=== PATIENT | male | born 1970 | race Caucasian/White ===

== ENCOUNTER 2019-04-19 14:58 | Inpatient (IN) | payer OTHER ==
[2019-04-19] MEDS ORDERED: Ondansetron PF 4 MG/2 ML Vial ONE (15:27)
[2019-04-19] MEDS ORDERED: Morphine 4 MG/ML VIAL ONE (15:27)
[2019-04-19] MEDS ORDERED: Clindamycin/D5W 900 mg/50 ml Premix Bag ONE ×2 (15:27→15:36)
[2019-04-19] MEDS ORDERED: Piperacillin/Tazobactam 4.5 GM VIAL ONE ×2 (15:28→16:14)
[2019-04-19 15:52] LABS: #Lymphocytes 1.5 thou/uL (1.20-3.40); #Monocytes 1.9 thou/uL (0.11-0.59); #Neutrophils 12.9 thou/uL (1.40-6.50); %Basophils 0.1 % (0.0-1.0); %Eosinophils 0.1 % (0.0-10.0); %Lymphocytes 9.3 % (21.0-51.0); %Monocytes 11.8 % (0.0-10.0); %Neutrophils 78.8 % (42.0-75.0); Hemoglobin 14.8 g/dL (14.0-18.0); Mean Corpuscular HGB CONC 33.4 g/dL (32.0-36.0); Mean Corpuscular Hemoglobin 31.1 pg (27.0-31.0); Mean Corpuscular Volume 92.9 fL (78.0-98.0); Mean Platelet Volume 9.3 fL (7.4-10.4); Platelet Count 174 thou/uL (130-400); RBC Distribution Width 11.7 % (11.5-14.5); Red Blood Cell (RBC) Count 4.77 mill/uL (4.70-6.10); White Blood Cell (WBC) Count 16.3 thou/uL (4.8-10.8)
[2019-04-19] MEDS ORDERED: Acetaminophen/Codeine 30-300mg Tablet ONE (16:14)
[2019-04-19 16:15] LABS: ALT (SGPT) 15 U/L (8-55); AST (SGOT) 11 U/L (5-34); Alkaline Phosphatase 76 U/L (40-150); Anion Gap 14 mmol/L (10-20); BUN (Urea Nitrogen) 18 mg/dL (8.9-20.6); Bilirubin, Total 1.5 mg/dL (0.2-1.2); Calc. Creatinine Clearance 0 mL/min (70-130); Calcium 9.2 mg/dL (7.8-10.44); Carbon Dioxide 24 mmol/L (22-29); Chloride 102 mmol/L (98-107); Estimated GFR-MDRD 83; Globulin 3.4 g/dL (2.4-3.5); Glucose 118 mg/dL (70-105); Potassium 3.6 mmol/L (3.5-5.1); Protein, Total 7.4 g/dL (6.0-8.3); Sodium 136 mmol/L (136-145)
--- NOTE | 2019-04-19 18:37 | PDOC.FPRHP ---
Addendum entered and electronically signed by Issac Castillo MD 04/20/19 03:31: 10cc aspirated from joint Original Note: - History of Present Illness Chief Complaint: LUE Cellulitis History of Present Illness: The patient is a 49 y/o male who presents from a local alf with LUE cellulitis. The patient states that he ran into a door on 04/17/19 and that his left elbow has become increasingly swollen, erythematous, and edematous since. He complains of associated symptoms of fever, chills, nausea, LUE neuropathy characterized as a "burning", and decreased ROM. He received 2 doses of Minocycline and multiple doses of Aspirin at the [facility], which have not helped. He does admit to another inmate on his cell block having a similar infection from MRSA, but denies any chest pain, shortness of breath, vomiting, or diarrhea. ED Course: The patient received TYlenol #3 1 tab, Clindamycin 900 mg x2, Zosyn 4.5 g, and Vancomycin 1 g. 4 view X-Ray of the LUE was ordered and blood cultures were taken by ED staff. - Allergies/Adverse Reactions Allergies Allergy/AdvReac Type Severity Reaction Status Date / Time benztropine [From Cogentin] Allergy Verified 04/19/19 18:42 cephalexin [From Keflex] Allergy Rash Verified 04/19/19 18:42 meperidine [From Demerol] Allergy Verified 04/19/19 18:42 Penicillins Allergy Anaphylaxis Verified 04/19/19 18:42 - Home Medications Medication Instructions Recorded Confirmed Type Furosemide MDD 160 mg 04/19/19 History Lisinopril MDD 40 mg 04/19/19 History Metoprolol Tartrate 25 mg PO 04/20/19 History Omeprazole 40 mg PO DAILY 04/20/19 04/20/19 History Ranitidine HCl [Zantac] 300 mg PO 04/20/19 History - History PMHx: HTN, Asthma PSHx: Appendectomy FHx: None Social: Patient admits to a remote history of EtOH, Tobacco, and Drug Abuse (Non -IV), but denies x3 since his incarceration - Review of Systems General: reports: fever/chills, night sweats, fatigue Respiratory: denies: cough, shortness of breath Cardiovascular: denies: chest pain Gastrointestinal: reports: nausea. denies: vomiting, diarrhea, abdominal pain Skin: reports: lesions (LUE Extremity erythema, edema) Musculoskeletal: reports: pain, tenderness, stiffness, swelling, arthritis/ arthralgias Neurological: reports: numbness, weakness - Vital signs BP: [121/88] HR: [91] RR: [17] Tmax: [100.6] Pox: [100]% on [Room] Wt: [136 kg ] - Physical Exam Constitutional: NAD, awake, alert and oriented, well developed HEENT: normocephalic and atraumatic, PERRLA, EOMI, conjunctiva clear, no scleral icterus, grossly normal vision, grossly normal hearing, MMM, oropharynx clear Neck: supple, FROM, trachea midline, no LAD, no thyromegaly Chest: no-tender to palpation, no lesions Heart: RRR, normal S1/S2, no murmurs/rubs/gallops, pulses present (+2 at Radial Artery, bilaterally) Lungs: CTAB, no respiratory distress, good air movement, no rales/rhonchi, no wheezing, no retractions Abdomen: soft, non-tender -Musculoskeletal: The patient's LUE is grossy erythematous, edematous, and warm to the touch from the mid-humerus to the hand, without obvious sores or areas of drainage. ED staff marked borders on admission. ROM is decreased significantly to flexion and extension. 1 2 cm x 2 cm effusion was noted at the elbow, with no crepitus. Manager [employer] strength was equal bilaterally. -Neurological: Patient complains of LUE burning. Skin: capillary refill <2 seconds Psychiatric: normal mood and affect, intact recent and remote memory FMR H&P: Results - Labs Result Diagrams: 04/20/19 05:37 04/20/19 03:52 Lab results: WBC 16.3 thou/uL (4.8-10.8) H 04/19/19 15:31 Hgb 14.8 g/dL (14.0-18.0) 04/19/19 15:31 Hct 44.3 % (42.0-52.0) 04/19/19 15:31 MCV 92.9 fL (78.0-98.0) 04/19/19 15:31 Plt Count 174 thou/uL (130-400) 04/19/19 15:31 Neutrophils % 78.8 % (42.0-75.0) H 04/19/19 15:31 Sodium 136 mmol/L (136-145) 04/19/19 15:31 Potassium 3.6 mmol/L (3.5-5.1) 04/19/19 15:31 Chloride 102 mmol/L (98-107) 04/19/19 15:31 Carbon Dioxide 24 mmol/L (22-29) 04/19/19 15:31 BUN 18 mg/dL (8.9-20.6) 04/19/19 15:31 Creatinine 0.97 mg/dL (0.7-1.3) 04/19/19 15:31 Glucose 118 mg/dL (70-105) H 04/19/19 15:31 Lactic Acid 1.2 mmol/L (0.5-2.2) 04/19/19 15:31 Calcium 9.2 mg/dL (7.8-10.44) 04/19/19 15:31 Total Bilirubin 1.5 mg/dL (0.2-1.2) H 04/19/19 15:31 AST 11 U/L (5-34) 04/19/19 15:31 ALT 15 U/L (8-55) 04/19/19 15:31 Alkaline Phosphatase 76 U/L (40-150) 04/19/19 15:31 Serum Total Protein 7.4 g/dL (6.0-8.3) 04/19/19 15:31 Albumin 4.0 g/dL (3.5-5.0) 04/19/19 15:31 FMR H&P: A/P - Problem List (1) Cellulitis of elbow Current Visit: Yes Status: Acute Code(s): L03.119 - CELLULITIS OF UNSPECIFIED PART OF LIMB (2) SIRS (systemic inflammatory response syndrome) Current Visit: Yes Status: Acute Code(s): R65.10 - SIRS OF NON-INFECTIOUS ORIGIN W/O ACUTE ORGAN DYSFUNCTION - Plan 1. Cellulitis of Left Elbow, r/o Septic Arthritis vs. Infective Bursitis vs. Necrotising Fasciitis -Vancomycin Therapy with subsequent Trough Measurements -CBC revealed WBC of 16.3 -Blood Cultures Pending -ESR: 42 -Lactic Acid: 1.2 -CRP Pending -4 View LUE X-Ray Pending -LUE Soft Tissue US Pending, consider Joint Aspiration if US non-reassuring -Lrinec Score: 1 -Consider Surgical Consult if Necrotising Fasciitis is suspected 2. SIRS -Monitor Vitals for Hypotension or severe Fever -Trend ESR, Lactic Acid, CRP values -Initiated Fluid Resuscitation if Vitals Non-reassuring or AMS -Consider ID Consult FMR H&P: Upper Level - Plan Date/Time: 04/19/191832 HPI: This is a 49 yo gentleman being admitted for L arm cellulitis. States he bumped his L elbow on a door 2 days ago. States that the arm started to become erythematous shortly after the incident. He [place] and the redness as continued to expand despite treatment. He reports pain throughout the arm exacerbated by movement. He denies fevers at the alf. One of the inmates near him was recently treated for MRSA per his report but he denies have having had an MRSA infection. Patient is on Lasix, BB, and Lisinopril but denies ever being diagnosed with HF. States his leg swell sometimes which is why he is on the Lasix. PMH includes Asthma, HTN. Denies CHF. REVIEW OF SYSTEMS: Gen: no fever, chills, or sweats Neuro: no numbness/tingling, no weakness, denies headache Eyes: no visual changes Resp: no cough, no SOB, no wheeze Card: denies chest pain, no palpitations GI: no N/V/D, no abdominal pain : no dysuria, no hematuria MSK: see hpi Skin: see hpi PHYSICAL EXAMINATION: General: NAD, alert and oriented x3 HEENT: PERRLA, EOMI, normal sclera, oropharynx without erythema or exudate Neck: Supple. Full ROM. Heart/Cardiovascular System: RRR, Cap refill < 3 seconds, no rub, no murmur Lungs/Respiratory System: clear to auscultation bilaterally. No increased work of breathing. Room air. Abdomen/Gastro-Intestinal System: no abdominal tenderness, normal bowel sounds, no masses, no organomegaly Neuro: No gross deficits appreciated. CN 2-12 grossly intact Psychiatry: Awake, Alert and cooperative with exam Skin: Patient erythema extending from mid humerus to, hand, L hand is somewhat swollen, no crepitus, mild tenderness to palpation throughout Musculoskeletal: Patient has mild decreased ROM at L elbow, unable to fully flex or extend 30 to 150, mild pain with movement A/P: # Septic bursitis, Sepsis, Cellulitus - tapped L bursa, 20cc purulent fluid drained - CRP 27, ESR 42, WBC 16 - LRINEC 5, low risk for nec fasc, will follow patients course and have index of suspicion - consider septic joint, consult ortho in AM - Vancomycin, blood culture, GS, cytology, culture of aspirate # Possible CHF not in exacerbation - patient is on BB, CHANDA, Lasix - denies ever being diagnosed with CHF - trace lower extremity edema - consider Echo outpatient - Fluids: NS 150ml/hr Code status: full PPx: lovenox Dispo: >2 midnights Addendum - Attending - Attending Attestation Date/Time: 04/20/19 7198 I personally evaluated the patient and discussed the management with Dr. Castillo and team. I agree with the History, Examination, Assessment and Plan documented above with any addition or exceptions noted below.
--- NOTE | 2019-04-19 19:50 | RAD ---
LEFT HUMERUS TWO VIEWS: HISTORY: Swelling and pain. COMPARISON: None. FINDINGS: There is no acute fracture or malalignment. No erosions or periostitis. Mild soft tissue swelling of the dorsal aspect of the distal humerus and of the forearm. IMPRESSION: Dorsal soft tissue swelling, centered around the elbow, without fracture appreciated. POS: HOME
--- NOTE | 2019-04-19 19:53 | RAD ---
LEFT FOREARM TWO VIEWS: HISTORY: Pain and swelling. COMPARISON: None. FINDINGS: There is dorsal edema surrounding the elbow. Mild traction enthesophytes of the olecranon at the tri ceps insertion. No erosions or periostitis. IMPRESSION: 1. Soft tissue swelling, suggestive of cellulitis. 2. Subtle medial cortical irregularity of the distal ulna, likely chronic in nature. There are no f racture lines appreciated. POS: HOME
[2019-04-19] MEDS ORDERED: Ibuprofen 200 MG TAB ONE ×2 (20:13→20:18)
[2019-04-19] MEDS ORDERED: Calcium Carbonate 500 MG ChewTAB PO PRN (20:25)
[2019-04-19] MEDS ORDERED: Vancomycin HCl 1 GM in Premix Bag 1 BAG IVPB SCH (21:00)
[2019-04-19 21:45] LABS: Band 3 % (5-11); Hemoglobin 13.1 g/dL (14.0-18.0); Hypochromia SLIGHT = 6-15 cells (100X) (0-5/hpf); Lymphocytes 7 % (21-51); MDiff Complete? YES; Mean Corpuscular Volume 93.9 fL (78.0-98.0); Mean Platelet Volume 9.2 fL (7.4-10.4); Monocytes 3 % (0-10); Neutrophil 87 % (42-75); Platelet Count 152 thou/uL (130-400); Platelet Morphology Comment Appears Adequate; RBC Distribution Width 11.5 % (11.5-14.5); Red Blood Cell (RBC) Count 4.21 mill/uL (4.70-6.10); White Blood Cell (WBC) Count 13.6 thou/uL (4.8-10.8)
[2019-04-19 21:48] LABS: ALT (SGPT) 13 U/L (8-55); AST (SGOT) 9 U/L (5-34); Albumin 3.5 g/dL (3.5-5.0); Alkaline Phosphatase 64 U/L (40-150); Anion Gap 11 mmol/L (10-20); BUN (Urea Nitrogen) 17 mg/dL (8.9-20.6); Bilirubin, Total 1.4 mg/dL (0.2-1.2); Calc. Creatinine Clearance 0 mL/min (70-130); Calcium 8.4 mg/dL (7.8-10.44); Carbon Dioxide 24 mmol/L (22-29); Chloride 105 mmol/L (98-107); Estimated GFR-MDRD 85; Globulin 2.8 g/dL (2.4-3.5); Glucose 107 mg/dL (70-105); Potassium 3.6 mmol/L (3.5-5.1); Protein, Total 6.3 g/dL (6.0-8.3); Sodium 136 mmol/L (136-145)
[2019-04-19] MEDS ORDERED: Sodium Chloride 0.9% 1,000 ML IV SCH (22:00)
--- NOTE | 2019-04-19 22:09 | ULT ---
EXAM: US Soft Tissue Other PROVIDED CLINICAL HISTORY: Pain status post injury COMPARISON: None FINDINGS: Limited sonographic interrogation was performed of the left elbow in the region of clinical concern. There is a heterogeneous, circumscribed area of altered echogenicity in the region of clinical concern, measuring approximately 5 cm. This demonstrates fluid echogenicity as well as more complex a reas and mobile debris. IMPRESSION: At least 5 cm complex fluid collection in the region of clinical concern. Hematoma is possible given reported recent injury. Correlate with concerns for infection.
[2019-04-19] MEDS: Sodium Chloride 0.9% 1,000 ML IV SCH (22:25)
[2019-04-19] MEDS ORDERED: Lidocaine 1% (PF) 30 ML VIAL ONE (22:39)
--- NOTE | 2019-04-20 00:27 | PDOC.EVN ---
Addendum entered and electronically signed by Issac Castillo MD 04/20/19 03:32: Original Note: Event Note - Event Note Event Note: PRE-OP DIAGNOSIS: Cellulitis L elbow POST-OP DIAGNOSIS: Same PROCEDURE: joint aspiration Performing Physician: Tabatha Landers, PGY-1 Supervising Physician (if applicable): Dr. Larry Castillo, PGY-3, Dr. Kenroy Hyde ( Attending) Local anesthesia: - 1% Lidocaine 2 mL Procedure: The area was prepped in the usual sterile manner w/ iodine. Lidocaine needle was inserted into the affected area of the L elbow, and lidocaine injected. Large bore needle then inserted while aspirating fluid from the bursa. Fluid appeared purulent and yellow-brown in color. ~5-10 mL collected and labeled w/ the patient's label. There were no complications during this procedure. Followup: The patient tolerated the procedure well without complications. Standard post-procedure care was explained. Tabatha Landers MD, PGY-1 Addendum - Attending - Attending Attestation Date/Time: 04/20/19 1041 I was present for the procedure.
[2019-04-20 01:04] LABS: BF Color Pink; Body Fluid Source Synovial Fluid; Clarity Cloudy/Turbid (Clear); Tube # EDTA
[2019-04-20 01:05] LABS: WBC Background Count 0.04; WBC/NonHematic-Auto 334000 /cumm
[2019-04-20 01:06] LABS: RBC Count-Automated 704000 /cumm
[2019-04-20 01:24] VITALS: BMI 40.6
[2019-04-20 02:10] LABS: BF Segmented Neutrophils 99 %; Lymphocytes 1 %
[2019-04-20 04:30] LABS: Anion Gap 12 mmol/L (10-20); BUN (Urea Nitrogen) 15 mg/dL (8.9-20.6); Calc. Creatinine Clearance 166 mL/min (70-130); Calcium 8.8 mg/dL (7.8-10.44); Carbon Dioxide 23 mmol/L (22-29); Chloride 107 mmol/L (98-107); Estimated GFR-MDRD 75; Glucose 108 mg/dL (70-105); Sodium 138 mmol/L (136-145)
[2019-04-20] MEDS: Acetaminophen 325 MG TAB PO PRN ×2 (04:30→21:43)
[2019-04-20 04:34] LABS: Vancomycin, Trough 7.2 ug/mL
[2019-04-20] MEDS ORDERED: Ibuprofen 600 MG TAB PO ONE (05:52)
--- NOTE | 2019-04-20 05:58 | PDOC.EVN ---
Event Note - Event Note Event Note: Brief Encounter Note: Call from DAVID Kwok: 102.5 F fever ~0430 this AM. Gave Tylenol 650mg PO. Fever recheck at 103.1 F. Went to see patient. Reports nausea and feeling hot. Appeared sweaty and tired. Erythema of left arm slightly spread past drawn margins at 0300. Ordered ibuprofen 600mg to be given now. Tabatha Landers MD PGY-1
[2019-04-20] MEDS ORDERED: Vancomycin HCl 2 GM in Sodium Chloride 0.9% 250 ML 300 ML IVPB SCH (06:00)
--- NOTE | 2019-04-20 06:01 | PDOC.FM ---
- Subjective Subjective: Patient is seen sitting up in his bed chatting with staff this morning. At 430 AM the night team was paged that the patient had a temp of 102.5F and he was given 650 mg Tylenol. Repeat temp at 530AM was 103.1F. The patient currently complains of nausea, feeling sweaty, and fatigue. He says that over the past few days he has had alternating periods of feeling sweaty vs feeling chills. Last night his left elbow was aspirated near the joint with 20cc of purulent fluid removed and sent for culture. So far this aspirate has shown gram- positive cocci. The patient's left arm was originally marked at the erythema line in the ED, then again at 300AM this morning. Upon exam today at 6:30AM, the erythema has continued to spread up his arm past mid-humerus and down his arm into his left hand and fingers. Patient complains of increased pain in his arm in addition to the increased swelling. Patient additionally noticed early this morning that he has an area of increased firmness on the inner part of his right thigh just above the knee. He states this area is similar to how his left elbow originally started as. ROS: Positive for fever, chills, fatigue, nausea, chest tightness. Denies vomiting, chest pain, shortness of breath, wheezing, diarrhea, constipation. - Objective MAR Reviewed: Yes Vital Signs & Weight: Vital Signs (12 hours) Temp Pulse Resp BP BP BP Pulse Ox 04/20/19 05:41 103.1 F H 04/20/19 04:00 102.5 F H 92 20 126/63 93 L 04/20/19 00:00 99.5 F 90 20 121/76 04/19/19 21:10 99.2 F 81 18 168/70 H 96 Weight Weight 136 kg Result Diagrams: 04/20/19 05:37 04/20/19 03:52 Additional Labs: Laboratory Tests 04/20/19 00:05 Fluid Source Synovial Fluid Fluid Tube Number EDTA Fluid Color [place] Fluid Clarity Cloudy/Turbid H Fluid WBC 516676 Fluid RBC [id number] Fluid Seg Neutrophil % 99 Fluid Lymphocytes % 1 Laboratory Tests 04/19/19 04/20/19 15:31 03:52 C-Reactive Protein 27.56 H 24.48 H Aspirate positive for gram positive cocci. Blood cultures negative at 12 hours. Radiology Reviewed by me: Yes Radiology: LUE XR: concerning for cellulitis LUE U/S: 5 cm complex fluid collection Phys Exam - Physical Examination Mild distress. Appears sweaty. HEENT: moist MMs, sclera anicteric Neck: no JVD, supple, full ROM Respiratory: no wheezing, no rales, no rhonchi, clear to auscultation bilateral Cardiovascular: RRR, no significant murmur Gastrointestinal: soft, non-tender, positive bowel sounds Musculoskeletal: pulses present, edema present (left UE from mid humerus down to left hand and fingers) Neurological: normal sensation, moves all 4 limbs Psychiatric: normal affect, A&O x 3 Deviation from normal: Erythema and swelling present past original ED&3:00 margins. -: Area of increased firmness on inner part of left arm just above elbow. Dx/Plan (1) Hypertension Code(s): I10 - ESSENTIAL (PRIMARY) HYPERTENSION Status: Chronic (2) History of asthma Code(s): Z87.09 - PERSONAL HISTORY OF OTHER DISEASES OF THE RESPIRATORY SYSTEM Status: Chronic (3) Hx of congestive heart failure Code(s): Z86.79 - PERSONAL HISTORY OF OTHER DISEASES OF THE CIRCULATORY SYSTEM Status: Chronic (4) Cellulitis of elbow Code(s): L03.119 - CELLULITIS OF UNSPECIFIED PART OF LIMB Status: Acute (5) SIRS (systemic inflammatory response syndrome) Code(s): R65.10 - SIRS OF NON-INFECTIOUS ORIGIN W/O ACUTE ORGAN DYSFUNCTION Status: Acute (6) GERD (gastroesophageal reflux disease) Code(s): K21.9 - GASTRO-ESOPHAGEAL REFLUX DISEASE WITHOUT ESOPHAGITIS Status: Acute - Plan Plan: 1. Cellulitis of Left Elbow, r/o Septic Arthritis vs. Infective Bursitis vs. Necrotising Fasciitis -Vancomycin Therapy with subsequent Trough Measurements--Pharmacy to dose -added Levaquin 750mg q24 hrs -WBC trending down 16.3 -> 13.6 -Blood Cultures negative at 12 hours -ESR: 42 -Lactic Acid: 1.2 -CRP 27.5 -> 24.5 -4 View LUE X-Ray-shows cellulitis -LUE Soft Tissue US--shows 5cm complex fluid collection -Joint Aspiration-about 20 cc purulent fluid collect, await culture results of aspirate, initial report shows 334,000 WBC, 704,000 RBC with gram stain showing gram positive cocci -Lrinec Score: 5 -Ortho Surgery Consult--suspected septic joint vs. necrotizing fasciitis 2. SIRS -Monitor Vitals for Hypotension or severe Fever--Tylenol and Ibuprofen ordered prn -Trend ESR, Lactic Acid, CRP values -Initiated Fluid Resuscitation if Vitals Non-reassuring or AMS -Consider ID Consult 3. Hypertension -Controlled on home meds Lisinopril and Metoprolol 4. Hx of CHF -Controlled on home med Lasix 5. Hx of Asthma -restarted home med of Dulera inhaler & Zyrtec -Albuterol inhaler ordered prn 6. GERD -restarted Carafate home med
[2019-04-20] MEDS: Sodium Chloride 0.9% 1,000 ML IV SCH ×3 (06:18→17:26)
[2019-04-20 06:29] LABS: Band 4 % (5-11); Hemoglobin 13.4 g/dL (14.0-18.0); Lymphocytes 5 % (21-51); MDiff Complete? YES; Mean Platelet Volume 9.7 fL (7.4-10.4); Monocytes 5 % (0-10); Neutrophil 86 % (42-75); Platelet Count 148 thou/uL (130-400); Platelet Morphology Comment Appears Adequate; RBC Distribution Width 11.6 % (11.5-14.5); RBC Morphology Normal; Red Blood Cell (RBC) Count 4.31 mill/uL (4.70-6.10); White Blood Cell (WBC) Count 11.4 thou/uL (4.8-10.8)
[2019-04-20] MEDS ORDERED: PROVENTIL INHALER 6.7 G (200 INHALATIONS) INH PRN (08:30)
[2019-04-20] MEDS ORDERED: Cetirizine HCl 10 MG TAB PO SCH (09:00)
[2019-04-20] MEDS: Enoxaparin Sodium 40 MG/0.4 ML SYRINGE SC SCH (09:21)
[2019-04-20] MEDS: Famotidine 20 MG TAB PO SCH ×2 (10:38→20:16)
[2019-04-20] MEDS: Loratadine 10 MG TAB PO SCH ×2 (10:38→14:03)
[2019-04-20] MEDS: Lisinopril 20 MG TAB PO SCH ×2 (10:38→14:02)
[2019-04-20] MEDS: Metoprolol Tartrate 25 MG TAB PO SCH ×2 (10:38→20:16)
[2019-04-20] MEDS: Sucralfate 1 GM TAB PO SCH ×4 (10:54→20:16)
--- NOTE | 2019-04-20 13:11 | PRG ---
DATE OF SERVICE: 04/20/2019 Mr. Kong is a 49-year-old white male patient prisoner, who was admitted with a cellulitis of his left arm very near the joint and bursa. I and D was performed last night. He is currently on broad-spectrum antibiotics. I would suggest that we add a skyhook to get the arm elevated. We will also ask Ortho for an opinion given the proximity of this infection to his joint. Job ID: [id number]
[2019-04-20 13:23] LABS: Hemoglobin A1c 5.3 % (4.0-6.0)
[2019-04-20 13:57] LABS: Syphilis Antibody Nonreactive (Nonreactive); Syphilis Antibody Index 0.06 S/CO (<1.00 Non-Reactive)
[2019-04-20] MEDS ORDERED: Clopidogrel Bisulfate 75 MG TAB ONE (13:57)
[2019-04-20 13:58] LABS: HIV (1/2) Antibody/Antigen Non-Reactive (NonReactive); HIV 1/2 INDEX 0.19 S/CO (<1.00); Hep C IgG Ab Non-Reactive (NonReactive)
[2019-04-20] MEDS: Ibuprofen 600 MG TAB PO PRN ×2 (14:02→20:16)
--- NOTE | 2019-04-20 15:55 | CON ---
DATE OF CONSULTATION: HISTORY OF PRESENT ILLNESS: Mr. Kong is a 49-year-old male, who presented to the hospital yesterday with cellulitis of the left upper extremity. He was found to have septic olecranon bursitis as well. The olecranon bursa was aspirated and approximately 20 mL of purulent material was identified. This was sent for cultures, gram-positive cocci had been identified on Gram stain. He is on intravenous antibiotics. The patient is slowly improving. He did have an elevated white blood cell count as well as fevers. His white blood cell count is responding and improving. He has a complex medical history after being interviewed. He reports having loss of balance and weakness in the lower extremities, causing him to be in a wheelchair. He is convinced he has parasites. He has had multiple ear infections. He has been receiving workup in [place], and is hoping to get an MRI of his brain. Upon initial presentation here, his fever was 103.1 and is down to 98.9 currently. PAST MEDICAL HISTORY: Positive for; 1. Neurologic symptoms as per HPI. 2. Hypertension. 3. Asthma. PAST SURGICAL HISTORY: Appendectomy. FAMILY MEDICAL HISTORY: Noncontributory. IMAGING STUDIES: X-rays of the humerus and forearm are negative for bony findings. There is soft tissue swelling. LABORATORY STUDIES: White blood cell count yesterday was 16.3, today it is down to 11.4. PHYSICAL EXAMINATION: VITAL SIGNS: Temperature is 98.9, pulse is 76, respiratory rate is 18, and blood pressure is 119/73. GENERAL: He is alert, lying supine, in no apparent distress. RESPIRATORY: Breathing comfortably. ABDOMEN: Soft, nontender, and nondistended. MUSCULOSKELETAL: The patient's left upper extremity has erythema and edema. This extends from the mid humerus to the wrist level. He has edema of the hand as well. He is able to flex and extend the hand and fingers. He can flex and extend the elbow without significant discomfort. He has posterior olecranon bursitis, swelling, and tenderness. There is increased warmth. No open wounds. IMPRESSION: Left arm cellulitis with olecranon bursitis, septic. PLAN: At this point, the patient needs to continue his intravenous antibiotics. He does seem to be responding to antibiotics given that his fever has normalized and his white blood cell count is decreasing. I think he likely will need operative intervention. I will put him n.p.o. at midnight tonight. Hopefully, his cellulitis is improving and we can proceed with irrigation and debridement of the posterior olecranon bursa. This will likely be done tomorrow afternoon. If he has a significant improvement as possible, he would not need surgical intervention, but I think this is unlikely. I will leave the remainder of his workup including his suspicion of parasites up to the internal medicine service. He has multiple labs ordered including HIV, syphilis, hepatitis serologies, and others. N.p.o. at midnight. I will continue to follow closely. Job ID: [id number]
--- NOTE | 2019-04-20 16:55 | PQF ---
CLINICAL DOCUMENTATION IMPROVEMENT CLARIFICATION FORM: ICD-10 Updated PLEASE DO AN ADDENDUM TO THE PROGRESS NOTE WITH ANY DOCUMENTATION UPDATES OR ADDITIONS AND CARRY THROUGH TO DC SUMMARY. THANK YOU. DATE: 04/20/19 ATTN: DR. ARELLANO Please exercise your independent, professional judgment in responding to the clarification form. Clinical indicators are provided on the bottom of this form for your review Please check appropriate box(s) to clarify if the following diagnosis has been ruled in or ruled out: "SEPSIS" [ X] Ruled in diagnosis [ X] Continue to treat [ ] Resolved [ ] Ruled out diagnosis [ ] Cannot rule out diagnosis [ ] Other diagnosis [ ] Unable to determine In addition, please specify: Present on Admission (POA): [ X] Yes [ ] No [ ] Unable to determine For continuity of documentation, please document condition throughout progress notes and discharge summary. Thank You. CLINICAL INDICATORS - SIGNS / SYMPTOMS / LABS H&P: "SEPSIS" CONSULTATION NOTE (CLAUDE): "LEFT ARM CELLULITIS WITH OLECRANON BURSITIS, SEPTIC" PULSE 107 RR 25 WBC 16.3 CRP 27.56 RISKS: CELLULITIS TREATMENT: IV VANCOMYCIN (ER-PRESENT) IV ZOSYN (ER) IV CLINDAMYCIN (ER) IV LEVAQUIN (04/20) IV FLUIDS (ER-PRESENT) BLOOD CULTURES CULTURE OF SYNOVIAL FLUID (This form is maintained as a part of the permanent medical record) 2014 [employer]. All Rights Reserved [email or web address] Office: [phone] [facility]ITAL[facility]ai
[2019-04-20] MEDS: Mometasone/Formoterol 120 PUFF INHALER INH SCH (18:58)
[2019-04-21] MEDS: Ibuprofen 600 MG TAB PO PRN ×2 (02:18→21:04)
[2019-04-21] MEDS: Acetaminophen 325 MG TAB PO PRN (04:12)
[2019-04-21 04:57] LABS: #Eosinphils 0.1 thou/uL (0.0-0.7); #Lymphocytes 1.3 thou/uL (1.20-3.40); #Monocytes 0.9 thou/uL (0.11-0.59); %Basophils 0.2 % (0.0-1.0); %Eosinophils 1.1 % (0.0-10.0); %Monocytes 10.2 % (0.0-10.0); %Neutrophils 72.5 % (42.0-75.0); Hemoglobin 12.6 g/dL (14.0-18.0); Mean Corpuscular HGB CONC 32.6 g/dL (32.0-36.0); Mean Corpuscular Hemoglobin 31.2 pg (27.0-31.0); Mean Corpuscular Volume 95.7 fL (78.0-98.0); Mean Platelet Volume 9.6 fL (7.4-10.4); Platelet Count 151 thou/uL (130-400); RBC Distribution Width 11.5 % (11.5-14.5); Red Blood Cell (RBC) Count 4.05 mill/uL (4.70-6.10); White Blood Cell (WBC) Count 8.3 thou/uL (4.8-10.8)
[2019-04-21] MEDS: Sodium Chloride 0.9% 1,000 ML IV SCH ×4 (05:20→20:43)
[2019-04-21 05:24] LABS: Anion Gap 12 mmol/L (10-20); BUN (Urea Nitrogen) 13 mg/dL (8.9-20.6); Calc. Creatinine Clearance 209 mL/min (70-130); Calcium 8.7 mg/dL (7.8-10.44); Carbon Dioxide 20 mmol/L (22-29); Chloride 110 mmol/L (98-107); Estimated GFR-MDRD Greater than 90; Glucose 93 mg/dL (70-105); Potassium 3.7 mmol/L (3.5-5.1); Sodium 138 mmol/L (136-145); Vancomycin, Trough 12.1 ug/mL
--- NOTE | 2019-04-21 05:33 | PDOC.FM ---
- Subjective Subjective: Patient is seen sitting up in his bed chatting with staff this morning. He reports that he did not have any fever/chills overnight. He complains of increased pain in his left arm and is requesting stronger pain meds. He also had some discomfort from his arm handing in the skyhook that was placed yesterday evening to promote drainage from the left arm. When his arm was in the skyhook he rated his pain 10/10. The skyhook was removed at 2140 last night and the patient was placed back into metal cuffs. He continues to state that he believes that he is infected with parasites in his left arm and right leg but states he "feels they are moving around less since starting the antibiotics". He is scheduled this morning for ortho surgery with Dr. Hoagn who plans to irrigate and debride the left posterior olecranon bursa. Patient had a Hibiclens bath around 6:00AM this morning in anticipation for surgery. The patient's left arm was originally marked at the erythema line in the ED, then again at 300AM on 04/20. Upon exam today at 6:30AM, the erythema and swelling has not spread any further and is still located on his left arm past mid-humerus and is present down his arm into his left hand and fingers. Patient additionally complains this morning that he feels constipated. His last BM was on April 17. ROS: Denies fever, chills, fatigue, nausea, vomiting, chest tightness, chest pain, shortness of breath, wheezing, diarrhea. Positive for constipation. - Objective Vital Signs & Weight: Vital Signs (12 hours) Temp Pulse Resp BP Pulse Ox 04/21/19 04:00 99.1 F 71 20 117/63 94 L 04/21/19 00:00 99.2 F 74 20 105/57 L 94 L 04/20/19 20:00 99.3 F 79 20 154/86 H 93 L 04/20/19 19:41 93 L 04/20/19 18:58 80 12 96 Weight Weight 136 kg I&O: 04/19/19 04/20/19 04/21/19 06:59 06:59 06:59 Intake Total 1760 Output Total 1000 Balance 760 Result Diagrams: 04/21/19 04:37 04/21/19 04:37 Phys Exam - Physical Examination Constitutional: NAD HEENT: moist MMs, sclera anicteric Neck: no JVD, supple, full ROM Respiratory: no wheezing, clear to auscultation bilateral Cardiovascular: RRR, no significant murmur Gastrointestinal: soft, non-tender, positive bowel sounds Musculoskeletal: pulses present, edema present (significant edema present in left UE from mid humerus down into fingers) Neurological: normal sensation, moves all 4 limbs Psychiatric: normal affect, A&O x 3 Deviation from normal: Left UE is red, swollen with skin tightening. No visible drainage. Dx/Plan (1) Hypertension Code(s): I10 - ESSENTIAL (PRIMARY) HYPERTENSION Status: Chronic (2) History of asthma Code(s): Z87.09 - PERSONAL HISTORY OF OTHER DISEASES OF THE RESPIRATORY SYSTEM Status: Chronic (3) Hx of congestive heart failure Code(s): Z86.79 - PERSONAL HISTORY OF OTHER DISEASES OF THE CIRCULATORY SYSTEM Status: Chronic (4) Cellulitis of elbow Code(s): L03.119 - CELLULITIS OF UNSPECIFIED PART OF LIMB Status: Acute (5) SIRS (systemic inflammatory response syndrome) Code(s): R65.10 - SIRS OF NON-INFECTIOUS ORIGIN W/O ACUTE ORGAN DYSFUNCTION Status: Acute (6) GERD (gastroesophageal reflux disease) Code(s): K21.9 - GASTRO-ESOPHAGEAL REFLUX DISEASE WITHOUT ESOPHAGITIS Status: Chronic (7) Constipation Code(s): K59.00 - CONSTIPATION, UNSPECIFIED Status: Acute - Plan Plan: 49 yo male admitted for Cellulitis with Septic Bursa of Left Elbow 1. Cellulitis of Left Elbow, r/o Septic Arthritis vs. Infective Bursitis vs. Necrotising Fasciitis -Vancomycin Therapy with subsequent Trough Measurements--Pharmacy to dose -Levaquin 750mg q24 hrs -WBC trending down 16.3 -> 13.6 -> 8.3 -Blood Cultures negative at 12 hours -ESR: 42 -Lactic Acid: 1.2 -CRP 27.5 -> 24.5 -4 View LUE X-Ray-shows cellulitis -LUE Soft Tissue US--shows 5cm complex fluid collection -Joint Aspiration-about 20 cc purulent fluid collect, await culture results of aspirate, initial report shows 334,000 WBC, 704,000 RBC with gram stain showing gram positive cocci -Lrinec Score: 5 -Ortho Surgery Consultplan for irrigation and debridement this AM, appreciate recs to follow -will add Morphine 2 mg for additional pain management 2. SIRS -Sepsis/SIRS criteria met upon admission include: Temp >100.4F (pt had temp of 103.1F) , HR >90 (pt had HR 92), RR >20 (pt had RR 20), WBC >12,000 (pt had WBC 16,300) with suspected source of infection (left elbow) -Monitor Vitals for Hypotension or severe Fever--Tylenol and Ibuprofen ordered prn -Trend ESR, Lactic Acid, CRP values -Initiated Fluid Resuscitation if Vitals Non-reassuring or AMS -Consider ID Consult if clinical condition deteriorates 3. Hypertension -Controlled on home meds Lisinopril and Metoprolol 4. Hx of CHF -Controlled on home med Lasix 5. Hx of Asthma -restarted home med of Dulera inhaler & Zyrtec -Albuterol inhaler ordered prn 6. GERD -restarted Carafate home med 7. Constipation -last BM on 04/17 -Miralax ordered prn Diet: Regular, placed on NPO at midnight for 04/21 until after surgery VTE: SCDs, Lovenox Code status: Full code Dispo: Patient stable, LOS expected <48 hrs
[2019-04-21] MEDS: Mometasone/Formoterol 120 PUFF INHALER INH SCH ×2 (07:26→18:43)
[2019-04-21] MEDS: Sucralfate 1 GM TAB PO SCH ×4 (08:07→20:40)
[2019-04-21] MEDS: Lisinopril 20 MG TAB PO SCH (08:07)
[2019-04-21] MEDS: Famotidine 20 MG TAB PO SCH ×2 (08:07→20:40)
[2019-04-21] MEDS: Loratadine 10 MG TAB PO SCH (08:07)
[2019-04-21] MEDS: Metoprolol Tartrate 25 MG TAB PO SCH ×2 (08:07→20:41)
[2019-04-21] MEDS: Enoxaparin Sodium 40 MG/0.4 ML SYRINGE SC SCH (08:08)
[2019-04-21] MEDS ORDERED: Polyethylene Glycol 3350 17 GM Packet PO PRN (09:09)
[2019-04-21] MEDS ORDERED: Polyethylene Glycol 3350 17 GM Packet PO SCH (09:15)
[2019-04-21] MEDS ORDERED: Lidocaine 1% PF 5 ML VIAL ONE (11:26)
[2019-04-21] MEDS ORDERED: Succinylcholine Chloride 20 MG/ML 10 ml SYRINGE FS ONE (11:26)
[2019-04-21] MEDS ORDERED: Dexamethasone 20 MG/5 ML VIAL ONE (11:26)
[2019-04-21] MEDS ORDERED: Ondansetron PF 4 MG/2 ML Vial ONE (11:26)
[2019-04-21] MEDS ORDERED: PROPOFOL 200 MG/20 ML VIAL ONE (11:26)
[2019-04-21] MEDS ORDERED: Morphine 2 MG/ML SYRINGE SLOW IVP PRN (12:15)
[2019-04-21] MEDS ORDERED: Morphine 2 MG/ML SYRINGE SLOW IVP SCH (12:15)
--- NOTE | 2019-04-21 12:30 | PRG ---
DATE OF SERVICE: 04/21/2019 Mr. Kong was seen in consultation by the orthopedic surgeon and will be taken for surgery later today for further debridement of his olecranon bursitis and abscess. He still has a great deal of swelling in his left arm, although this is improved from admission. He is growing Staph aureus from the olecranon bursal aspirate and is on appropriate antibiotic coverage. We will continue to follow with the orthopedist and appreciate his input. Job ID: [id number]
[2019-04-21] MEDS: Vancomycin HCl 1.75 GM in Sodium Chloride 0.9% 500 ML IVPB SCH ×2 (15:11→22:24)
[2019-04-21] MEDS ORDERED: HYDROcodone/Acetaminophen 5/325 mg Tablet ONE (15:30)
[2019-04-21] MEDS ORDERED: Fentanyl 100 MCG/2 ML VIAL ONE ×3 (16:09→17:14)
[2019-04-21] MEDS ORDERED: Lidocaine 2% Jelly 5 ML TUBE ONE (16:09)
[2019-04-21] MEDS ORDERED: Midazolam HCl 2 mg/2 ml Vial ONE (16:09)
[2019-04-21] MEDS ORDERED: Promethazine HCl 25 MG/ML VIAL IM PRN (17:45)
[2019-04-21] MEDS ORDERED: Promethazine HCl 25 MG/ML VIAL SLOW IVP PRN (17:45)
[2019-04-21] MEDS ORDERED: Ondansetron HCl/PF 4 MG/2 ML Vial IVP PRN (17:45)
--- NOTE | 2019-04-21 18:08 | OP ---
DATE OF PROCEDURE: 04/21/2019 OPERATION: Irrigation and debridement of left elbow with septic olecranon bursa. PREOPERATIVE DIAGNOSIS: Left septic elbow olecranon bursa. POSTOPERATIVE DIAGNOSIS: Left septic elbow olecranon bursa. COMPLICATIONS: None. ESTIMATED BLOOD LOSS: 100 mL. IMPLANTS: None. INDICATIONS: Mr. Kong is a 49-year-old male who has developed erythema and swelling around his left elbow as well as cellulitis of the left upper extremity. This began with a minor injury, striking his elbow against a door frame. Aspirate of the bursa has shown gram-positive cocci. He failed to improve. He was indicated for irrigation and debridement of the septic bursa to hopefully help eradicate infection. DESCRIPTION OF OPERATION: Mr. Kong was identified in the preoperative holding area. His correct extremity was marked. He was carried to the operating room. He was positioned supine. General anesthesia was induced. A multidisciplinary time-out was performed. The left upper extremity was prepped and draped in sterile fashion. At this point, we began the procedure with a posterior incision over the elbow. We dissected down through the subcutaneous tissues into the bursal space. We encountered purulent material. This was cultured. We debrided the deep tissues with a rongeur including subcutaneous tissues and fascia. We worked medially and laterally. At this point, again, we thoroughly irrigated with copious lavage. We then debrided with a curette. Next, we performed a final irrigation. We then trimmed the skin edges. We then loosely closed with a 3-0 nylon suture. There was some packing left in place, which was iodoform gauze as well. Job ID: [id number]
[2019-04-22] MEDS: Acetaminophen 325 MG TAB PO PRN ×2 (01:33→16:02)
[2019-04-22] MEDS: Sodium Chloride 0.9% 1,000 ML IV SCH ×2 (05:17→08:17)
[2019-04-22 05:23] LABS: #Eosinphils 0.1 thou/uL (0.0-0.7); #Lymphocytes 1.2 thou/uL (1.20-3.40); #Monocytes 0.8 thou/uL (0.11-0.59); #Neutrophils 6.2 thou/uL (1.40-6.50); %Basophils 0.5 % (0.0-1.0); %Eosinophils 0.8 % (0.0-10.0); %Lymphocytes 14.7 % (21.0-51.0); %Monocytes 9.9 % (0.0-10.0); %Neutrophils 74.1 % (42.0-75.0); Hemoglobin 11.5 g/dL (14.0-18.0); Mean Corpuscular HGB CONC 32.7 g/dL (32.0-36.0); Mean Corpuscular Hemoglobin 31.3 pg (27.0-31.0); Mean Corpuscular Volume 95.5 fL (78.0-98.0); Mean Platelet Volume 9.6 fL (7.4-10.4); Platelet Count 162 thou/uL (130-400); RBC Distribution Width 11.5 % (11.5-14.5); Red Blood Cell (RBC) Count 3.67 mill/uL (4.70-6.10); White Blood Cell (WBC) Count 8.4 thou/uL (4.8-10.8)
--- NOTE | 2019-04-22 05:37 | PDOC.FM ---
- Subjective Subjective: Patient is seen sitting up in his bed chatting with staff this morning. Yesterday around 1:00PM, Dr. Hoang performed I&D of the patients left olecranon bursa and cultures were sent. Patient believes the surgery went well. His pain and swelling has improved overnight but is still significantly present near the left elbow up to mid humerus. He reports that he did not have any fever/chills overnight. He additionally complains of some chest tightness and a cough this morning. He requested a treatment of his Dulera inhaler from the nurse during my exam. Patient also states he is amenable to being placed back in the skyhook for the morning and says he will try to tolerate it until at least lunchtime today. ROS: Denies fever, chills, fatigue, nausea, vomiting, chest pain, shortness of breath, wheezing, diarrhea, constipation. Positive for chest tightness and cough as above. - Objective Vital Signs & Weight: Vital Signs (12 hours) Temp Pulse Resp BP BP Pulse Ox 04/22/19 01:40 98.7 F 04/21/19 22:23 97.7 F 82 18 136/73 95 04/21/19 18:43 74 16 94 L 04/21/19 18:15 98.9 F 79 18 156/79 H 94 L Weight Weight 136 kg I&O: 04/20/19 04/21/19 04/22/19 06:59 06:59 06:59 Intake Total 3928 Output Total 1900 750 Balance 8 -750 Result Diagrams: 04/22/19 04:59 04/22/19 04:59 Phys Exam - Physical Examination Constitutional: NAD HEENT: moist MMs, sclera anicteric Neck: no JVD, supple, full ROM Respiratory: no wheezing, clear to auscultation bilateral Cardiovascular: RRR, no significant murmur Gastrointestinal: soft, non-tender, positive bowel sounds Musculoskeletal: pulses present Swelling of left arm from mid humerus down into hand Neurological: normal sensation, moves all 4 limbs Psychiatric: normal affect, A&O x 3 Skin: no rash, normal turgor Deviation from normal: Skin is red and warm near left elbow. Dressing in place over surgery site. Dx/Plan (1) Hypertension Code(s): I10 - ESSENTIAL (PRIMARY) HYPERTENSION Status: Chronic (2) History of asthma Code(s): Z87.09 - PERSONAL HISTORY OF OTHER DISEASES OF THE RESPIRATORY SYSTEM Status: Chronic (3) Hx of congestive heart failure Code(s): Z86.79 - PERSONAL HISTORY OF OTHER DISEASES OF THE CIRCULATORY SYSTEM Status: Chronic (4) Cellulitis of elbow Code(s): L03.119 - CELLULITIS OF UNSPECIFIED PART OF LIMB Status: Acute (5) SIRS (systemic inflammatory response syndrome) Code(s): R65.10 - SIRS OF NON-INFECTIOUS ORIGIN W/O ACUTE ORGAN DYSFUNCTION Status: Acute (6) GERD (gastroesophageal reflux disease) Code(s): K21.9 - GASTRO-ESOPHAGEAL REFLUX DISEASE WITHOUT ESOPHAGITIS Status: Chronic (7) Constipation Code(s): K59.00 - CONSTIPATION, UNSPECIFIED Status: Acute - Plan Plan: 49 yo male admitted for Cellulitis with Septic Bursa of Left Elbow 1. Cellulitis of Left Elbow, Septic Arthritis, Infective Olecranon Bursitis -Vancomycin Therapy with subsequent Trough Measurements--Pharmacy to dose -Levaquin 750mg q24 hrsdiscontinued on 04/21 due to culture results -WBC trending down 16.3 -> 13.6 -> 8.3 -> 8.4 -Blood Cultures negative at 48 hours -ESR: 42 -Lactic Acid: 1.2 -CRP 27.5 -> 24.5 -4 View LUE X-Ray-shows cellulitis -LUE Soft Tissue US--shows 5cm complex fluid collection -Joint Aspiration-about 20 cc purulent fluid collect, await culture results of aspirate, initial report shows 334,000 WBC, 704,000 RBC with gram stain showing Staph Aureus -Lrinec Score: 5 -Ortho Surgery Consultperformed irrigation and debridement on 04/21, appreciate recs to follow -Added Morphine 2 mg q4hr prn for pain control -Preliminary culture results from specimen taken in surgery shows gram positive cocci in pairs in clusters, anaerobe culture still pending -Will place back in [facility] this morning 2. SIRS -Sepsis/SIRS criteria met upon admission include: Temp >100.4F (pt had temp of 103.1F) , HR >90 (pt had HR 92), RR >20 (pt had RR 20), WBC >12,000 (pt had WBC 16,300) with suspected source of infection (left elbow)---patient has not had fever for past 24 hours, WBC count is trending down -Monitor Vitals for Hypotension or severe Fever--Tylenol and Ibuprofen ordered prn -Trend ESR, Lactic Acid, CRP values -Initiated Fluid Resuscitation if Vitals Non-reassuring or AMS -Consider ID Consult if clinical condition deteriorates 3. Hypertension -Controlled on home meds Lisinopril and Metoprolol 4. Hx of CHF -Controlled on home med Lasix 5. Hx of Asthma -restarted home med of Dulera inhaler & Zyrtec -Albuterol inhaler ordered prn 6. GERD -restarted Carafate home med 7. Constipation -Miralax added on 04/21. Patient has not had a BM since 04/17. Diet: Regular VTE: SCDs, Lovenox Code status: Full code Dispo: Patient stable, LOS expected <48 hrs
[2019-04-22 05:39] LABS: Vancomycin, Trough 22.2 ug/mL
[2019-04-22 05:41] LABS: Anion Gap 11 mmol/L (10-20); BUN (Urea Nitrogen) 12 mg/dL (8.9-20.6); Calc. Creatinine Clearance 229 mL/min (70-130); Calcium 8.2 mg/dL (7.8-10.44); Carbon Dioxide 21 mmol/L (22-29); Chloride 109 mmol/L (98-107); Estimated GFR-MDRD Greater than 90; Glucose 107 mg/dL (70-105); Potassium 3.7 mmol/L (3.5-5.1); Sodium 137 mmol/L (136-145)
[2019-04-22] MEDS: Ibuprofen 600 MG TAB PO PRN ×2 (05:58→19:58)
[2019-04-22] MEDS: Mometasone/Formoterol 120 PUFF INHALER INH SCH ×2 (07:32→19:53)
[2019-04-22] MEDS: Sucralfate 1 GM TAB PO SCH ×4 (07:44→19:57)
[2019-04-22] MEDS: Famotidine 20 MG TAB PO SCH ×2 (08:10→19:57)
[2019-04-22] MEDS: Lisinopril 20 MG TAB PO SCH (08:10)
[2019-04-22] MEDS: Metoprolol Tartrate 25 MG TAB PO SCH ×2 (08:11→19:58)
[2019-04-22] MEDS: Loratadine 10 MG TAB PO SCH (08:11)
[2019-04-22] MEDS: Enoxaparin Sodium 40 MG/0.4 ML SYRINGE SC SCH (08:11)
--- NOTE | 2019-04-22 09:34 | PRG ---
DATE OF SERVICE: 04/22/2019 SUBJECTIVE: Nadeem is postop day 1 from a left elbow septic bursa incision and drainage washout and exploration. He is doing better. His pain has improved and his redness is slowly doing down. OBJECTIVE: VITAL SIGNS: Temperature 98.7, pulse 65, blood pressure 147/80, respiratory rate 16 and nonlabored, O2 saturation is 98% on room air. GENERAL: He is alert and oriented to person, place, time, and situation. Nonfocal, responsive, and appropriate with the examiner. EXTREMITIES: The left upper extremity demonstrates his erythema to be improving, it is not as bright red as it was. He has some strike through as expected on the dressing. Staph aureus is the culprit. IMPRESSION: 1. Staphylococcus aureus, left elbow. 2. Septic bursitis with cellulitis, improving postoperative day 1 in a 49-year-old male. PLAN: Continue current care and recheck tomorrow. Job ID: [id number]
--- NOTE | 2019-04-22 10:33 | PRG ---
DATE OF SERVICE: 04/22/2019 SUBJECTIVE: Mr. Kong had surgery yesterday on his left arm and looks and feels much better. He still has some significant swelling or redness in the left forearm, but overall this is markedly improved. He will resume his skyhook after breakfast and we will continue on antibiotics and following with the orthopedist. He will likely need to be in here until the weekend as there still is a significant degree of swelling in his left arm and forearm. Clinically however, he is much improved and very pleased with this care. Job ID: [id number]
[2019-04-22] MEDS: Vancomycin HCl 1.5 GM in Sodium Chloride 0.9% 250 ML 300 ML IVPB SCH ×2 (10:48→17:35)
[2019-04-23] MEDS: Acetaminophen 325 MG TAB PO PRN (00:05)
[2019-04-23] MEDS: Vancomycin HCl 1.5 GM in Sodium Chloride 0.9% 250 ML 300 ML IVPB SCH ×3 (01:29→17:53)
[2019-04-23] MEDS: Ibuprofen 600 MG TAB PO PRN ×2 (02:23→21:33)
--- NOTE | 2019-04-23 05:42 | PDOC.FM ---
- Subjective Subjective: Patient is seen laying in his bed watching TV this morning. His swelling has continued to improve. The patient reports that he was able to leave his left arm in the IV skyhook for approximately 4 hours yesterday. He states he wants to try again to place his arm in the skyhook from around 10/11AM to 5PM, which was relayed to nursing staff. He is experiencing some increased pain in his left arm. He reports that he did have some periods of feeling hot overnight and that he has been taking Tylenol for most of yesterday evening and overnight. The chest tightness he was experiencing yesterday have improved since resuming his regular Dulera treatments. He did still have a dry cough overnight for about 2 hours. He also reports that since taking the Miralax on 04/21 that he had BM x 2 on 04/22. Cultures from the original aspirate near left elbow returned positive for Staph aureus that is sensitive to most antibiotics. The cultures taken from aspirate during the I&D surgery have so far showed gram positive cocci in pairs and clusters with a potential mixed organism culture. ROS: Denies fever, chills, fatigue, nausea, vomiting, chest tightness, chest pain, shortness of breath, wheezing, diarrhea, constipation. Positive for cough , pain, swelling as above. - Objective MAR Reviewed: Yes Vital Signs & Weight: Vital Signs (12 hours) Temp Pulse Resp BP Pulse Ox 04/23/19 05:14 98.2 F 69 20 136/85 95 04/22/19 22:49 95 04/22/19 19:53 99.4 F 75 20 130/79 95 Weight Weight 136 kg I&O: 04/21/19 04/22/19 04/23/19 06:59 06:59 06:59 Intake Total 3928 2100 3900 Output Total 1900 1700 Balance 2027 400 3900 Result Diagrams: 04/23/19 05:43 04/23/19 05:43 Phys Exam - Physical Examination Constitutional: NAD Does appear to be mildy sweating. HEENT: moist MMs, sclera anicteric Neck: no JVD, supple, full ROM Respiratory: no wheezing, clear to auscultation bilateral Cardiovascular: RRR, no significant murmur Gastrointestinal: soft, non-tender, positive bowel sounds Musculoskeletal: no edema, pulses present some restriction in making fist in left hand restriction with left shoulder flexion and abduction Neurological: normal sensation, moves all 4 limbs Psychiatric: normal affect, A&O x 3 Skin: no rash Deviation from normal: Normal skin temp. Red color just above and below left elbow. Dx/Plan (1) Hypertension Code(s): I10 - ESSENTIAL (PRIMARY) HYPERTENSION Status: Chronic Qualifiers: Hypertension type: essential hypertension Qualified Code(s): I10 - Essential (primary) hypertension (2) History of asthma Code(s): Z87.09 - PERSONAL HISTORY OF OTHER DISEASES OF THE RESPIRATORY SYSTEM Status: Chronic (3) Hx of congestive heart failure Code(s): Z86.79 - PERSONAL HISTORY OF OTHER DISEASES OF THE CIRCULATORY SYSTEM Status: Chronic (4) Cellulitis of elbow Code(s): L03.119 - CELLULITIS OF UNSPECIFIED PART OF LIMB Status: Acute (5) SIRS (systemic inflammatory response syndrome) Code(s): R65.10 - SIRS OF NON-INFECTIOUS ORIGIN W/O ACUTE ORGAN DYSFUNCTION Status: Acute (6) GERD (gastroesophageal reflux disease) Code(s): K21.9 - GASTRO-ESOPHAGEAL REFLUX DISEASE WITHOUT ESOPHAGITIS Status: Chronic (7) Constipation Code(s): K59.00 - CONSTIPATION, UNSPECIFIED Status: Acute - Plan Plan: 49 yo male admitted for Cellulitis with Septic Bursa of Left Elbow 1. Cellulitis of Left Elbow, Septic Arthritis, Infective Olecranon Bursitis -Vancomycin Therapy with subsequent Trough Measurements--Pharmacy to dose, will consider transition to PO antibiotics when culture sensitivities return -Levaquin 750mg q24 hrsdiscontinued on 04/21 due to culture results -WBC trending down 16.3 -> 13.6 -> 8.3 -> 8.4 -> 7.3 -Blood Cultures negative at 48 hours -ESR: 42 -Lactic Acid: 1.2 -CRP 27.5 -> 24.5 -4 View LUE X-Ray-shows cellulitis -LUE Soft Tissue US--shows 5cm complex fluid collection -Joint Aspiration-about 20 cc purulent fluid collect, culture results shows 334, 000 WBC, 704,000 RBC with gram stain showing Staph Aureus sensitive to most antibiotics -Lrinec Score: 5 -Ortho Surgery Consultperformed irrigation and debridement on 04/21, appreciate recs to follow -Added Morphine 2 mg q4hr prn for pain control -Preliminary culture results from specimen taken in surgery shows gram positive cocci in pairs in clusters, anaerobe culture still pending--will wait to alter antibiotics until all sensitivities return -Will place back in [facility] this morning as tolerated 2. SIRS -Sepsis/SIRS criteria met upon admission include: Temp >100.4F (pt had temp of 103.1F) , HR >90 (pt had HR 92), RR >20 (pt had RR 20), WBC >12,000 (pt had WBC 16,300) with suspected source of infection (left elbow)---patient has not had fever for past 24 hours, WBC count is trending down -Monitor Vitals for Hypotension or severe Fever--Tylenol and Ibuprofen ordered prn -Trend ESR, Lactic Acid, CRP values -Initiated Fluid Resuscitation if Vitals Non-reassuring or AMS -Consider ID Consult if clinical condition deteriorates 3. Hypertension -Controlled on home meds Lisinopril and Metoprolol 4. Hx of CHF -Controlled on home med Lasix 5. Hx of Asthma -restarted home med of Dulera inhaler & Zyrtec -Albuterol inhaler ordered prn 6. GERD -restarted Carafate home med 7. Constipationresolved -Miralax added on 04/21 after no BM x 4 days. Patient subsequently had a BM x2. Will be given again this morning. 8. Dry cough--new -started overnight 04/22-04/23, will continue to monitor -lung exam normal and vitals stable-will consider ordering CXR if develop fever or lung exam changes or WBC trends up Diet: Regular VTE: SCDs, Lovenox Code status: Full code Dispo: Patient stable, LOS expected <48 hrs
[2019-04-23 06:19] LABS: #Basophils 0.1 thou/uL (0.0-0.2); #Eosinphils 0.2 thou/uL (0.0-0.7); #Lymphocytes 1.7 thou/uL (1.20-3.40); #Monocytes 0.7 thou/uL (0.11-0.59); #Neutrophils 4.6 thou/uL (1.40-6.50); %Basophils 1.1 % (0.0-1.0); %Eosinophils 3.1 % (0.0-10.0); %Lymphocytes 22.9 % (21.0-51.0); %Monocytes 9.9 % (0.0-10.0); Hemoglobin 11.1 g/dL (14.0-18.0); Mean Corpuscular HGB CONC 33.4 g/dL (32.0-36.0); Mean Corpuscular Hemoglobin 31.4 pg (27.0-31.0); Mean Corpuscular Volume 93.9 fL (78.0-98.0); Mean Platelet Volume 8.8 fL (7.4-10.4); Platelet Count 207 thou/uL (130-400); RBC Distribution Width 11.6 % (11.5-14.5); Red Blood Cell (RBC) Count 3.55 mill/uL (4.70-6.10); White Blood Cell (WBC) Count 7.3 thou/uL (4.8-10.8)
[2019-04-23 06:38] LABS: Anion Gap 11 mmol/L (10-20); BUN (Urea Nitrogen) 11 mg/dL (8.9-20.6); Calc. Creatinine Clearance 204 mL/min (70-130); Calcium 8.4 mg/dL (7.8-10.44); Carbon Dioxide 22 mmol/L (22-29); Chloride 109 mmol/L (98-107); Estimated GFR-MDRD Greater than 90; Glucose 91 mg/dL (70-105); Potassium 3.3 mmol/L (3.5-5.1); Sodium 139 mmol/L (136-145)
[2019-04-23] MEDS: Mometasone/Formoterol 120 PUFF INHALER INH SCH ×2 (07:19→18:44)
[2019-04-23] MEDS: Sucralfate 1 GM TAB PO SCH ×4 (08:25→21:33)
[2019-04-23] MEDS: Metoprolol Tartrate 25 MG TAB PO SCH ×2 (09:22→21:33)
[2019-04-23] MEDS: Famotidine 20 MG TAB PO SCH ×2 (09:22→21:33)
[2019-04-23] MEDS: Lisinopril 20 MG TAB PO SCH (09:22)
[2019-04-23] MEDS: Enoxaparin Sodium 40 MG/0.4 ML SYRINGE SC SCH (09:23)
[2019-04-23] MEDS: Loratadine 10 MG TAB PO SCH (09:23)
[2019-04-23 09:25] LABS: Vancomycin, Trough 17.5 ug/mL
--- NOTE | 2019-04-23 11:35 | PRG ---
DATE OF SERVICE: 04/23/2019 Mr. Kong continues to "feel hot" at night, although he is afebrile. His left arm and forearm still reveals some edema, but this is improved over the previous 48 hours. There is still a mild degree of erythema as well. We have encouraged him to use the skyhook elevation to relieve the swelling and edema and we will continue with antibiotics. Overall, clinically, he is improving and his white count is normal at 7300. Job ID: [id number]
[2019-04-23] MEDS ORDERED: traMADol HCl 50 MG TAB PO SCH (13:15)
[2019-04-23] MEDS: Morphine 2 MG/ML SYRINGE SLOW IVP PRN (16:06)
[2019-04-24] MEDS: Morphine 2 MG/ML SYRINGE SLOW IVP PRN (00:59)
[2019-04-24] MEDS: Vancomycin HCl 1.5 GM in Sodium Chloride 0.9% 250 ML 300 ML IVPB SCH ×2 (01:01→12:51)
--- NOTE | 2019-04-24 05:52 | PDOC.FM ---
- Subjective Subjective: Patient is seen laying in his bed sleeping this morning, easily awakens. His swelling has continued to improve. The patient reports that he was able to leave his left arm in the IV skyhook for approximately 4 hours yesterday. He states he will try skyhook today for as long as tolerable. He states the pain in his left arm is still present but is improving. He reports his dry cough from yesterday has resolved. Wound care changed his dressing and wound packing yesterday. Patient remarks that there was significant drainage on the dressings. Cultures from the original aspirate near left elbow returned positive for Staph aureus that is sensitive to most antibiotics. The cultures taken from aspirate during the I&D surgery have so far also showed Staph aureus, and sensitivities returned earlier this morning showing similar sensitivities to most antibiotics. ROS: Denies fever, chills, fatigue, nausea, vomiting, chest tightness, chest pain, cough, shortness of breath, wheezing, diarrhea, constipation. Positive for pain & swelling as above. - Objective MAR Reviewed: Yes Vital Signs & Weight: Vital Signs (12 hours) Temp Pulse Resp BP Pulse Ox 04/24/19 00:00 98.7 F 04/23/19 20:26 99.3 F 65 20 132/87 96 04/23/19 20:00 96 04/23/19 18:44 68 12 94 L Weight Weight 136 kg I&O: 04/22/19 04/23/19 04/24/19 06:59 06:59 06:59 Intake Total 2100 4930 2370 Output Total 1700 900 Balance 400 4030 2370 Result Diagrams: 04/24/19 06:30 04/24/19 06:30 Phys Exam - Physical Examination Constitutional: NAD HEENT: PERRLA, moist MMs, sclera anicteric Neck: no JVD, supple, full ROM Respiratory: no wheezing, no rales, no rhonchi, clear to auscultation bilateral Cardiovascular: RRR, no significant murmur Gastrointestinal: soft, non-tender, positive bowel sounds Musculoskeletal: pulses present Moderate swelling of left arm and hand Neurological: normal sensation, moves all 4 limbs Psychiatric: normal affect, A&O x 3 Deviation from normal: Red skin, normal temp around dressing on left arm near elbow Dx/Plan (1) Hypertension Code(s): I10 - ESSENTIAL (PRIMARY) HYPERTENSION Status: Chronic Qualifiers: Hypertension type: essential hypertension Qualified Code(s): I10 - Essential (primary) hypertension (2) History of asthma Code(s): Z87.09 - PERSONAL HISTORY OF OTHER DISEASES OF THE RESPIRATORY SYSTEM Status: Chronic (3) Hx of congestive heart failure Code(s): Z86.79 - PERSONAL HISTORY OF OTHER DISEASES OF THE CIRCULATORY SYSTEM Status: Chronic (4) Cellulitis of elbow Code(s): L03.119 - CELLULITIS OF UNSPECIFIED PART OF LIMB Status: Acute (5) SIRS (systemic inflammatory response syndrome) Code(s): R65.10 - SIRS OF NON-INFECTIOUS ORIGIN W/O ACUTE ORGAN DYSFUNCTION Status: Acute (6) GERD (gastroesophageal reflux disease) Code(s): K21.9 - GASTRO-ESOPHAGEAL REFLUX DISEASE WITHOUT ESOPHAGITIS Status: Chronic (7) Constipation Code(s): K59.00 - CONSTIPATION, UNSPECIFIED Status: Acute - Plan Plan: 49 yo male admitted for Cellulitis with Septic Bursa of Left Elbow 1. Cellulitis of Left Elbow, Septic Arthritis, Infective Olecranon Bursitis -Vancomycin Therapy with subsequent Trough Measurements--Pharmacy to dose, will discontinue today and transition to PO Clindamycin -Levaquin 750mg q24 hrsdiscontinued on 04/21 due to culture results -WBC trending down 16.3 -> 13.6 -> 8.3 -> 8.4 -> 7.3 -> 6.0 -Blood Cultures negative -ESR: 42; Lactic Acid: 1.2; CRP 27.5 -> 24.5 -4 View LUE X-Ray-shows cellulitis -LUE Soft Tissue US--shows 5cm complex fluid collection -Joint Aspiration-about 20 cc purulent fluid collect, culture results shows 334, 000 WBC, 704,000 RBC with gram stain showing Staph Aureus sensitive to most antibiotics -Lrinec Score: 5 -Ortho Surgery Consultperformed irrigation and debridement on 04/21, Wound Care managing post-op care of surgical site -Morphine 2 mg q4hr prn for breakthrough pain control -Tramadol 50mg q4hr prn for moderate to severe pain -Culture results from specimen taken in surgery shows Staph aureus, anaerobe culture is negative at 72 hours--will alter antibiotics to Clindamycin today -Will place back in [facility] this morning as tolerated 2. SIRS -Sepsis/SIRS criteria met upon admission include: Temp >100.4F (pt had temp of 103.1F) , HR >90 (pt had HR 92), RR >20 (pt had RR 20), WBC >12,000 (pt had WBC 16,300) with suspected source of infection (left elbow)---patient has not had fever for past 24 hours, WBC count is trending down -Monitor Vitals for Hypotension or severe Fever--Tylenol and Ibuprofen ordered prn -Trend ESR, Lactic Acid, CRP values -Initiated Fluid Resuscitation if Vitals Non-reassuring or AMS -Consider ID Consult if clinical condition deteriorates 3. Hypertension -Controlled on home meds Lisinopril and Metoprolol -last 2 BPs have been elevated in systolic 140s, will continue to monitor and consider altering home BP meds if necessary 4. Hx of CHF -Controlled on home med Lasix 5. Hx of Asthma -restarted home med of Dulera inhaler & Zyrtec -Albuterol inhaler ordered prn 6. GERD -restarted Carafate home med 7. Constipationresolved -Miralax added on 04/21 after no BM x 4 days. Patient subsequently had a BM x2. Will be given again this morning. 8. Dry cough--new -started overnight 04/22-04/23, will continue to monitor but no complaints of cough today -lung exam normal and vitals stable-will consider ordering CXR if develop fever or lung exam changes or WBC trends up Diet: Regular VTE: SCDs, Lovenox Code status: Full code Dispo: Patient stable, LOS expected <48 hrs Addendum - Attending - Attending Attestation Date/Time: 04/24/191801 I personally evaluated the patient and discussed the management with Dr. Fuentes I agree with the History, Examination, Assessment and Plan documented above with any addition or exceptions noted below. Convert oral antibiotic and will need daily wound dressing changes [facility] to [facility] etc.
[2019-04-24] MEDS: Mometasone/Formoterol 120 PUFF INHALER INH SCH ×2 (06:27→18:45)
[2019-04-24 06:38] LABS: #Eosinphils 0.3 thou/uL (0.0-0.7); #Lymphocytes 1.5 thou/uL (1.20-3.40); #Monocytes 0.6 thou/uL (0.11-0.59); #Neutrophils 3.5 thou/uL (1.40-6.50); %Basophils 0.6 % (0.0-1.0); %Eosinophils 4.8 % (0.0-10.0); %Lymphocytes 25.6 % (21.0-51.0); %Monocytes 10.6 % (0.0-10.0); %Neutrophils 58.4 % (42.0-75.0); Hemoglobin 11.8 g/dL (14.0-18.0); Mean Corpuscular HGB CONC 32.8 g/dL (32.0-36.0); Mean Corpuscular Hemoglobin 31.1 pg (27.0-31.0); Mean Corpuscular Volume 94.8 fL (78.0-98.0); Mean Platelet Volume 8.2 fL (7.4-10.4); Platelet Count 246 thou/uL (130-400); RBC Distribution Width 11.6 % (11.5-14.5); Red Blood Cell (RBC) Count 3.79 mill/uL (4.70-6.10)
[2019-04-24 07:01] LABS: Anion Gap 8 mmol/L (10-20); BUN (Urea Nitrogen) 11 mg/dL (8.9-20.6); Calc. Creatinine Clearance 215 mL/min (70-130); Calcium 8.9 mg/dL (7.8-10.44); Carbon Dioxide 30 mmol/L (22-29); Chloride 106 mmol/L (98-107); Estimated GFR-MDRD Greater than 90; Glucose 93 mg/dL (70-105); Potassium 3.8 mmol/L (3.5-5.1); Sodium 140 mmol/L (136-145)
[2019-04-24] MEDS: Metoprolol Tartrate 25 MG TAB PO SCH ×2 (08:18→20:03)
[2019-04-24] MEDS: Loratadine 10 MG TAB PO SCH (08:18)
[2019-04-24] MEDS: Lisinopril 20 MG TAB PO SCH (08:18)
[2019-04-24] MEDS: Sucralfate 1 GM TAB PO SCH ×4 (08:19→20:00)
[2019-04-24] MEDS: Enoxaparin Sodium 40 MG/0.4 ML SYRINGE SC SCH (08:20)
[2019-04-24] MEDS: Famotidine 20 MG TAB PO SCH ×2 (09:27→20:01)
[2019-04-24] MEDS: Ibuprofen 600 MG TAB PO PRN (09:36)
[2019-04-24] MEDS: Clindamycin 150 MG CAP PO SCH ×3 (11:23→20:10)
[2019-04-24] MEDS: traMADol HCl 50 MG TAB PO PRN ×2 (13:05→20:10)
[2019-04-24] MEDS: Docusate 100 MG CAP PO SCH (20:01)
[2019-04-25] MEDS: Acetaminophen 325 MG TAB PO PRN ×2 (04:11→16:59)
[2019-04-25] MEDS: Clindamycin 150 MG CAP PO SCH ×4 (04:11→20:24)
--- NOTE | 2019-04-25 06:00 | PDOC.FM ---
- Subjective Subjective: Patient is seen laying in his bed chatting with staff this morning. His swelling has continued to improve. The patient reports that he left his left arm in the IV skyhook for approximately 6 hours yesterday. He states he will try skyhook again today for as long as tolerable. He states the pain in his left arm continues to improve. Wound care changed his dressing and wound packing yesterday, and will plan to change again today. Yesterday the patients antibiotics were changed to PO Clindamycin, which the patient has tolerated well so far. Case management spoke with [facility] managed care nurse and [facility] nurse at detention facility. It was determined that the detention facility does have the capability to perform daily wound care. However the patient has to remind himself of the need for daily wound care and must be able to wheel himself down to the detention clinic for the dressing changes (approx. 50 yards distance). If the patient is physically unable to perform these tasks, then he requires infirmary placement. However the [facility] infirmary is currently full and so the patient will required an alternative placement at another infirmary if discharged at this time. Patient states that he thinks he will be able to wheel himself for wound care as range of motion has been improving over past 72 hours. ROS: Denies fever, chills, fatigue, nausea, vomiting, chest tightness, chest pain, cough, shortness of breath, wheezing, diarrhea, constipation. Positive for pain & swelling as above. - Objective Vital Signs & Weight: Vital Signs (12 hours) Temp Pulse Resp BP Pulse Ox 04/24/19 20:00 98.3 F 66 18 168/83 H 98 04/24/19 18:45 71 16 97 Weight Weight 136 kg I&O: 04/23/19 04/24/19 04/25/19 06:59 06:59 06:59 Intake Total 4930 3470 1210 Output Total 935 481 8006 Balance 4030 2720 -390 Result Diagrams: 04/25/19 06:31 04/25/19 06:31 Phys Exam - Physical Examination Constitutional: NAD HEENT: PERRLA, moist MMs, sclera anicteric Neck: no JVD, supple, full ROM Respiratory: no wheezing, no rales, no rhonchi, clear to auscultation bilateral Cardiovascular: RRR, no significant murmur Gastrointestinal: soft, non-tender, no distention, positive bowel sounds Musculoskeletal: pulses present swelling present in LUE but significantly improved from yesterday Neurological: non-focal, normal sensation, moves all 4 limbs Psychiatric: normal affect, A&O x 3 Skin: no rash Deviation from normal: red skin just above/below dressing on LUE Dx/Plan (1) Hypertension Code(s): I10 - ESSENTIAL (PRIMARY) HYPERTENSION Status: Chronic Qualifiers: Hypertension type: essential hypertension Qualified Code(s): I10 - Essential (primary) hypertension (2) History of asthma Code(s): Z87.09 - PERSONAL HISTORY OF OTHER DISEASES OF THE RESPIRATORY SYSTEM Status: Chronic (3) Hx of congestive heart failure Code(s): Z86.79 - PERSONAL HISTORY OF OTHER DISEASES OF THE CIRCULATORY SYSTEM Status: Chronic (4) Cellulitis of elbow Code(s): L03.119 - CELLULITIS OF UNSPECIFIED PART OF LIMB Status: Acute (5) SIRS (systemic inflammatory response syndrome) Code(s): R65.10 - SIRS OF NON-INFECTIOUS ORIGIN W/O ACUTE ORGAN DYSFUNCTION Status: Acute (6) GERD (gastroesophageal reflux disease) Code(s): K21.9 - GASTRO-ESOPHAGEAL REFLUX DISEASE WITHOUT ESOPHAGITIS Status: Chronic (7) Constipation Code(s): K59.00 - CONSTIPATION, UNSPECIFIED Status: Acute - Plan Plan: 49 yo male admitted for Cellulitis with Septic Bursa of Left Elbow 1. Cellulitis of Left Elbow, Septic Arthritis, Infective Olecranon Bursitis -Vancomycin Therapy x 4 days, on 04/24 transitioned to PO Clindamycin -Levaquin 750mg q24 hrsdiscontinued on 04/21 due to culture results -WBC trending down 16.3 -> 13.6 -> 8.3 -> 8.4 -> 7.3 -> 6.0-> 6.6 -Blood Cultures negative -ESR: 42; Lactic Acid: 1.2; CRP 27.5 -> 24.5 -4 View LUE X-Ray-shows cellulitis -LUE Soft Tissue US--shows 5cm complex fluid collection -Joint Aspiration-about 20 cc purulent fluid collect, culture results shows 334, 000 WBC, 704,000 RBC with gram stain showing Staph Aureus sensitive to most antibiotics -Lrinec Score: 5 -Ortho Surgery Consultperformed irrigation and debridement on 04/21, Wound Care managing post-op care of surgical site and recommends daily dressing changes -Morphine 2 mg q4hr prn for breakthrough pain control -Tramadol 50mg q4hr prn for moderate to severe pain -Culture results from specimen taken in surgery shows Staph aureus, anaerobe culture is negative at 72 hours -Will place back in [facility] this morning as tolerated -Case Management consulted [facility] of [facility] for daily wound carewill contact later today about how to proceed with placement of patient after discharge -Will attempt to have patient wheel himself around his room today with guards observing -Patient has been cleared for d/c by Ortho surgery 2. SIRS -Sepsis/SIRS criteria met upon admission include: Temp >100.4F (pt had temp of 103.1F) , HR >90 (pt had HR 92), RR >20 (pt had RR 20), WBC >12,000 (pt had WBC 16,300) with suspected source of infection (left elbow)---patient has not had fever for past 24 hours, WBC count is trending down -Monitor Vitals for Hypotension or severe Fever--Tylenol and Ibuprofen ordered prn -Initiated Fluid Resuscitation if Vitals Non-reassuring or AMS 3. Hypertension -Controlled on home meds Lisinopril and Metoprolol -last 2 BPs have been elevated in systolic 140s, will continue to monitor and consider altering home BP meds if necessary 4. Hx of CHF -Controlled on home med Lasix 5. Hx of Asthma -restarted home med of Dulera inhaler & Zyrtec -Albuterol inhaler ordered prn 6. GERD -restarted Carafate home med 7. Constipationresolved -Miralax added on 04/21 after no BM x 4 days. Patient subsequently had a BM x2. Will be given again this morning. 8. Dry cough--resolved -started overnight 04/22-04/23, will continue to monitor but no complaints of cough in past 48 hours -lung exam normal and vitals stable-will consider ordering CXR if develop fever or lung exam changes or WBC trends up significantly Diet: Regular VTE: SCDs, Lovenox Code status: Full code Dispo: Patient stable, LOS expected <24 hrs, anticipate discharge back to detention facility pending State Transportation details Addendum - Attending - Attending Attestation Date/Time: 04/25/19 3249 I personally evaluated the patient and discussed the management with Dr. Fuentes I agree with the History, Examination, Assessment and Plan documented above with any addition or exceptions noted below. Stable for dismissal to custody of [facility] and po antibiotic and daily wound dressing changes per detention infirmary.
[2019-04-25] MEDS: Mometasone/Formoterol 120 PUFF INHALER INH SCH ×2 (06:47→18:29)
[2019-04-25 06:53] LABS: #Eosinphils 0.2 thou/uL (0.0-0.7); #Lymphocytes 1.7 thou/uL (1.20-3.40); #Monocytes 0.7 thou/uL (0.11-0.59); #Neutrophils 4.1 thou/uL (1.40-6.50); %Basophils 0.4 % (0.0-1.0); %Neutrophils 61.6 % (42.0-75.0); Hemoglobin 11.7 g/dL (14.0-18.0); Mean Corpuscular HGB CONC 33.7 g/dL (32.0-36.0); Mean Corpuscular Hemoglobin 31.7 pg (27.0-31.0); Mean Corpuscular Volume 94.1 fL (78.0-98.0); Mean Platelet Volume 8.3 fL (7.4-10.4); Platelet Count 276 thou/uL (130-400); RBC Distribution Width 11.4 % (11.5-14.5); Red Blood Cell (RBC) Count 3.69 mill/uL (4.70-6.10); White Blood Cell (WBC) Count 6.6 thou/uL (4.8-10.8)
[2019-04-25 07:13] LABS: Anion Gap 11 mmol/L (10-20); BUN (Urea Nitrogen) 12 mg/dL (8.9-20.6); Calc. Creatinine Clearance 223 mL/min (70-130); Calcium 8.7 mg/dL (7.8-10.44); Carbon Dioxide 26 mmol/L (22-29); Chloride 106 mmol/L (98-107); Estimated GFR-MDRD Greater than 90; Glucose 93 mg/dL (70-105); Potassium 3.7 mmol/L (3.5-5.1); Sodium 139 mmol/L (136-145)
[2019-04-25] MEDS: Metoprolol Tartrate 25 MG TAB PO SCH ×2 (07:46→20:24)
[2019-04-25] MEDS: Lisinopril 20 MG TAB PO SCH (07:46)
[2019-04-25] MEDS: Docusate 100 MG CAP PO SCH ×2 (07:47→20:24)
[2019-04-25] MEDS: Enoxaparin Sodium 40 MG/0.4 ML SYRINGE SC SCH (07:47)
[2019-04-25] MEDS: Loratadine 10 MG TAB PO SCH (07:47)
[2019-04-25] MEDS: Sucralfate 1 GM TAB PO SCH ×4 (07:47→20:24)
[2019-04-25] MEDS: Famotidine 20 MG TAB PO SCH ×2 (08:48→20:24)
[2019-04-25] MEDS: traMADol HCl 50 MG TAB PO PRN ×2 (10:24→20:24)
[2019-04-26] MEDS: Acetaminophen 325 MG TAB PO PRN ×3 (00:12→12:42)
[2019-04-26] MEDS: Clindamycin 150 MG CAP PO SCH ×3 (05:18→16:51)
[2019-04-26 05:56] LABS: #Eosinphils 0.2 thou/uL (0.0-0.7); #Lymphocytes 1.6 thou/uL (1.20-3.40); #Monocytes 0.6 thou/uL (0.11-0.59); #Neutrophils 3.2 thou/uL (1.40-6.50); %Basophils 0.7 % (0.0-1.0); %Eosinophils 3.3 % (0.0-10.0); %Lymphocytes 29.1 % (21.0-51.0); %Neutrophils 56.9 % (42.0-75.0); Hemoglobin 12.4 g/dL (14.0-18.0); Mean Corpuscular HGB CONC 32.9 g/dL (32.0-36.0); Mean Corpuscular Hemoglobin 30.8 pg (27.0-31.0); Mean Corpuscular Volume 93.7 fL (78.0-98.0); Mean Platelet Volume 8.1 fL (7.4-10.4); Platelet Count 313 thou/uL (130-400); RBC Distribution Width 11.4 % (11.5-14.5); Red Blood Cell (RBC) Count 4.04 mill/uL (4.70-6.10); White Blood Cell (WBC) Count 5.6 thou/uL (4.8-10.8)
[2019-04-26 06:16] LABS: Anion Gap 9 mmol/L (10-20); BUN (Urea Nitrogen) 10 mg/dL (8.9-20.6); Calc. Creatinine Clearance 209 mL/min (70-130); Carbon Dioxide 28 mmol/L (22-29); Chloride 107 mmol/L (98-107); Estimated GFR-MDRD Greater than 90; Glucose 89 mg/dL (70-105); Potassium 4.1 mmol/L (3.5-5.1); Sodium 140 mmol/L (136-145)
--- NOTE | 2019-04-26 06:23 | PDOC.FM ---
- Subjective Subjective: Mr. Kong is a pleasant 49 y/o prisoner who presented from the nearby [facility] in [place], [place] on 04/20 with sepsis secondary to infective bursitis of the LUE complicated by extensive cellulitis. Although he is unsure of the mechanism of injury, he believes that the initial insult to his LUE occurred when he ran into a door frame. An intial wound aspiration was performed, followed by surgical evaluation and subsequent debridement on 04/21. Bacterial cultures from the LUE returned S. aureus. Mr. Kong was initially placed on a regimen of IV Vancomycin, but has since transitioned to Clindamycin 450 mg PO Q6H, which he has tolerated well. Per nursing staff, he did not have any overnight events, and at this time does not complain of continued pain or limited range of motion of his LUE, or fevers, chills, night sweats, chest pain , or shortness of breath. He wants to attempt an additional wheelchair test today, despite failing his test on 04/25/19. Wound Care changed the dressing / packing on his LUE on 04/25/19. No adverse events or significant notes were reported. - Objective MAR Reviewed: Yes Vital Signs & Weight: Vital Signs (12 hours) Temp Pulse Resp BP Pulse Ox 04/25/19 20:00 97.9 F 66 16 142/81 H 95 04/25/19 18:29 84 16 95 Weight Weight 136 kg I&O: 04/24/19 04/25/19 04/26/19 06:59 06:59 06:59 Intake Total 3470 2710 5000 Output Total 750 2900 5575 Balance 2380 -755 -449 Result Diagrams: 04/26/19 05:34 04/26/19 05:34 Phys Exam - Physical Examination HEENT: moist MMs, sclera anicteric Neck: supple, full ROM Respiratory: no wheezing, no rales, no rhonchi, clear to auscultation bilateral Cardiovascular: RRR, no significant murmur, no rub Musculoskeletal: no edema (5/5 Powder Blender Strength), pulses present Reduced erythema and edema, increased ROM, decreased TTP, no crepitus Neurological: non-focal, normal sensation, moves all 4 limbs Psychiatric: normal affect, A&O x 3 Skin: no rash, normal turgor Dx/Plan (1) Cellulitis of elbow Code(s): L03.119 - CELLULITIS OF UNSPECIFIED PART OF LIMB Status: Acute (2) SIRS (systemic inflammatory response syndrome) Code(s): R65.10 - SIRS OF NON-INFECTIOUS ORIGIN W/O ACUTE ORGAN DYSFUNCTION Status: Acute - Plan Plan: 1. Cellulitis of Left Elbow, Infective Olecranon Bursitis -Vancomycin Therapy x 4 days, on 04/24 transitioned to Clindamycin 450 mg PO Q6H -Levaquin 750mg Q24H DC'd on 04/21 due to culture results -WBC trending down to 5.6 -Blood cultures negative -ESR: 42; Lactic Acid: 1.2; CRP 27.5 -> 24.5 -4 View LUE X-Ray showed Cellulitis -LUE Soft Tissue US showed 5cm Complex Fluid Collection -Joint Aspiration-about 20 cc purulent fluid collect, culture results shows 334, 000 WBC, 704,000 RBC with gram stain showing Staph Aureus sensitive to most antibiotics -Lrinec Score: 5 -Ortho Surgery performed irrigation and debridement on 04/21, Wound Care managing post-op care of surgical site and recommends daily dressing changes -Morphine 2 mg Q4H PRN for breakthrough pain control, last does on 04/24/19 @ 0100 -Tramadol 50mg Q4H PRN for moderate to severe pain, last does on 04/25/19 @ 2030 -Culture results from specimen taken in surgery shows S. aureus, anaerobe culture was negative at 72 hours -Has tolerated [place] well throughout hospital stay -Case Management consulted about transfer of patient to residential facility vs [facility] for daily wound care - will contact later today about how to proceed with placement of patient after discharge -Initial wheelchair test failed on 04/25/19, but patient wishes to undergo second attempt this AM - will notify Case Management of results -Patient has been cleared for DC by Ortho surgery 2. SIRS -Sepsis/SIRS criteria met upon admission include: Temp >100.4F (pt had temp of 103.1F) , HR >90 (pt had HR 92), RR >20 (pt had RR 20), WBC >12,000 (pt had WBC 16,300) with suspected source of infection (left elbow)---patient has not had fever for past 48 hours, WBC count is trending down -Monitor Vitals for Hypotension or Fever--Tylenol and Ibuprofen ordered PRN -Initiate Fluid Resuscitation if Vitals Non-reassuring or AMS 3. Hypertension -Controlled on home regimen of Lisinopril and Metoprolol -Last 3 BPs have been elevated in systolic 140s, will continue to monitor and consider altering home BP meds if necessary 4. Hx of CHF -Controlled on Lasix 5. Hx of Asthma -Restarted home regimen of Dulera & Zyrtec -Albuterol inhaler ordered PRN 6. GERD -Restarted home regiment of Carafate 7. Constipation - Resolved -Miralax added on 04/21 after no BM x 4 days. Patient subsequently had a BM x2. 8. Dry Cough - Resolved -Started overnight 04/22-04/23, will continue to monitor but no complaints of cough in past 72 hours -Respiratory exam WNP - Will consider ordering CXR if patient develops fever, lung exam changes or WBC trends up Diet: Regular VTE: SCDs, Lovenox Code Status: Full code Dispo: Patient stable, tolerating PO antibiotics well, LOS expected <24 hrs, anticipate DC back to residential facility pending State Transportation details Addendum - Attending - Attending Attestation Date/Time: 04/26/19 6987 I personally evaluated the patient and discussed the management with Dr. Patel and team. I agree with the History, Examination, Assessment and Plan documented above with any addition or exceptions noted below. Marked improvement from admission. Need to confirm antibiotics and duration. Likely d/c soon.
[2019-04-26] MEDS: Mometasone/Formoterol 120 PUFF INHALER INH SCH ×2 (06:53→18:42)
[2019-04-26] MEDS: Docusate 100 MG CAP PO SCH (08:42)
[2019-04-26] MEDS: Lisinopril 20 MG TAB PO SCH (08:43)
[2019-04-26] MEDS: Sucralfate 1 GM TAB PO SCH ×3 (08:43→16:51)
[2019-04-26] MEDS: Loratadine 10 MG TAB PO SCH (08:43)
[2019-04-26] MEDS: Metoprolol Tartrate 25 MG TAB PO SCH (08:43)
[2019-04-26] MEDS: Enoxaparin Sodium 40 MG/0.4 ML SYRINGE SC SCH (08:44)
[2019-04-26] MEDS: Famotidine 20 MG TAB PO SCH (10:27)
[2019-04-26] MEDS: traMADol HCl 50 MG TAB PO PRN ×2 (10:30→16:49)
[2019-04-26 16:29] VITALS: BP 146/76; TEMP 98.5
--- NOTE | 2019-04-26 21:45 | DIS ---
DATE OF ADMISSION: 04/19/2019 DATE OF DISCHARGE: 04/26/2019 RESIDENT: Florencio Patel MD ADMITTING ATTENDING: Niranjan Hyde MD DISCHARGE ATTENDING: Niranjan Hyde MD. CONSULTS: None. PROCEDURES: 4-view left upper extremity x-ray showing cellulitis, soft tissue ultrasound showing 5 cm fluid collection, bursa drainage and culture showing Staph aureus bacteria. PRIMARY DIAGNOSES: Sepsis secondary to left upper extremity cellulitis. DISCHARGE DIAGNOSIS: Sepsis secondary to left upper extremity cellulitis, resolving. DISCHARGE MEDICATIONS: Acetaminophen 650 mg p.o. q.4h p.r.n., clindamycin 450 mg p.o. q.6h, ibuprofen 600 mg p.o. q.6h were new home medications. HISTORY OF PRESENT ILLNESS/HOSPITAL COURSE: Mr. Kong is a pleasant 49-year- old prisoner who presents from nearby [facility] in [place], [place] on 04/19 , with sepsis secondary to infective bursitis of the left upper extremity complicated by extensive cellulitis, mechanism of injury is mild trauma in a door jamb. Initial wound aspiration was performed revealing Staph aureus bacteria growing on culture. Mr. Kong was initially placed on a regimen of IV vancomycin but he was transitioned to oral clindamycin, which he tolerated well. Per nursing staff, he did not have any significant complaints on the last day of hospital stay. He continues to have limited range of motion and pain in his left upper extremity. Since he is wheelchair bound, his ambulation is difficult, but he is optimistic about eventually returning to his normal daily activities. At this time, he denies fevers, chills, night sweats, chest pain, or shortness of breath. He feels confident that he can gain mastery of using his wheelchair and will continue to practice ambulation and transfer at this [facility] unit. PERTINENT LABORATORY DATA: White blood cell count was 16.3 on presentation, discharged at 5.6. Temperature was 102.5 on presentation, eventually spiking to 103.1, before dropping to 98.5 prior to discharge. Hemoglobin and hematocrit were 12.4 and 37.8 respectively on discharge. Cultures from wound aspiration revealed Staph aureus bacteria. DISPOSITION: Stable. DISCHARGE INSTRUCTIONS: 1. Location: [facility]. 2. Diet: Return to normal diet. Recommend carb conscious or heart healthy diet as available. 3. Activity: No restrictions. 4. Followup: The patient needs to continue taking his p.o. clindamycin q.6h for 5 days following discharge and follow up with Orthopedic Surgery to remove sutures and evaluate range of motion, strength, and resolving left upper extremity cellulitis. Job ID: [id number] MTDD
--- NOTE | 2019-04-27 10:01 | PQF ---
CLINICAL DOCUMENTATION IMPROVEMENT CLARIFICATION FORM: ICD-10 Updated PLEASE DO AN ADDENDUM TO THE PROGRESS NOTE WITH ANY DOCUMENTATION UPDATES OR ADDITIONS AND CARRY THROUGH TO DC SUMMARY. THANK YOU. DATE: 04/27/19 ATTN: DR. BAÑUELOS Please exercise your independent, professional judgment in responding to the clarification form. Clinical indicators are provided on the bottom of this form for your review Please check appropriate box(s): BMI > 40 with associated diagnosis of: (check one) [ X ] Morbid (Severe) Obesity [ ] Due to excess calories [ ] with Alveolar Hypoventilation (Pickwickian syndrome) [ ] Overweight [ ] Obesity [ ] Other diagnosis [ ] Unable to determine In addition, please specify: Present on Admission (POA): [ X ] Yes [ ] No [ ] Unable to Determine For continuity of documentation, please document condition throughout progress notes and discharge summary. Thank You. BMI < 19 Under weight 19 - 24.9 Healthy 25.0 - 29.9Slightly Overweight 30.0 - 34.9Obese 35.0 - 39.9Severely Obese 40.0 and Over Morbidly Obese X CLINICAL INDICATORS - SIGNS / SYMPTOMS / LABS BMI 40.7 PROGRESS NOTE 04/25: "AT BASELINE PT HAS POOR USE OF HIS LEGS" RISKS: SEPSIS CELLULITIS TREATMENT: WHEELCHAIR DEPENDENT [employer] Win[employer] Viewer (This form is maintained as a part of the permanent medical record) 2014 [employer]. All Rights Reserved [email or web address] Office: [phone] [email or web address]
== END 2019-04-26 19:53 | DRG 854 ==
LOC: ERS 14:58 → T4-B 20:54 → OBSVTOIN 20:54
PROVIDERS: ADMIT Emergency Medicine; ATTEND Emergency Medicine
PROC: 0R9M3ZZ Drainage of Left Elbow Joint, Percutaneous Approach (ICD-10-PCS; 2019-04-20)
PROC: 0JDH0ZZ Extraction of Left Lower Arm Subcutaneous Tissue and Fascia, Open Approach (ICD-10-PCS; principal; 2019-04-21)
DX: A41.9 Sepsis, unspecified organism (principal); L03.114 Cellulitis of left upper limb; Z68.41 Body mass index [BMI] 40.0-44.9, adult; E66.01 Morbid (severe) obesity due to excess calories; I11.0 Hypertensive heart disease with heart failure; K21.9 Gastro-esophageal reflux disease without esophagitis; K59.00 Constipation, unspecified; J45.909 Unspecified asthma, uncomplicated; I50.9 Heart failure, unspecified; M71.1 Other infective bursitis; Z99.3 Dependence on wheelchair; Z90.49 Acquired absence of other specified parts of digestive tract
CPT/HCPCS: 36415; 36416; 76999; 80048; 80053; 80202; 83036; 83605; 85025; 85060; 85652; 86140; 86780; 86803; 87040; 87070; 87077; 87186; 87205; 87389; 89051; 96365; 96366; 96367; 96375; J0131; J0690; J1100; J1650; J1956; J2001; J2250; J2270; J2405; J2543; J2704; J3010; J3370; J3490; J7050